=== PATIENT | male | born 1990 | race Caucasian/White ===

== ENCOUNTER 2023-03-12 12:38 | Emergency (ER) | payer MEDICAID ==
[~2023-03-12] VITALS: Ht 177.8 cm; Wt 77.1 kg
[2023-03-12] MEDS ORDERED: OLAN10TA3 PO (13:51)
[2023-03-12 14:10] VITALS: BP 145/76; TEMP 98.2; O2SAT 97
== END 2023-03-12 14:10 | disposition home or self-care (01) ==
LOC: ER 12:48
DX: Z76.0 Encounter for issue of repeat prescription (principal); F31.9 Bipolar disorder, unspecified